=== PATIENT | male | born 1995 | race Caucasian/White ===

== ENCOUNTER 2017-07-20 17:42 | Emergency (ER) | payer SELFPAY ==
[2017-07-20 18:09] VITALS: TEMP 98.4; O2SAT 100
--- NOTE | 2017-07-20 18:47 | C.PDOC ---
History Of Present Illness 21 yo male come in for evaluation of itchy rash gradually developed for past few days " after slept at friends house". Pt sts, rash is extremely itchy, gradually spread over the body. Otherwise, pt denies fever, chills, recent illness or abx use, denies previous hx of allergy to food or medication, denies throat swelling or tightness, neck pain, dyspnea, cough, CP, SOB, wheezing, N/V , denies any other active complaints. Ambulate to Ed for evaluation, appears in pruritic discomfort. Time Seen by Provider: 07/20/17 18:39 Chief Complaint (Nursing): Abnormal Skin Integrity History Per: Patient Onset/Duration Of Symptoms: Gradual Past Medical History Reviewed: Historical Data, Nursing Documentation, Vital Signs Vital Signs: Last Vital Signs Temp 98.4 F 07/20/17 18:07 Pulse 96 H 07/20/17 18:07 Resp 16 07/20/17 18:07 BP 124/72 07/20/17 18:07 Pulse Ox 100 07/20/17 18:07 - Medical History PMH: No Chronic Diseases Surgical History: No Surg Hx Family History: States: No Known Family Hx - Social History Hx Alcohol Use: No Hx Substance Use: No - Immunization History Hx Tetanus Toxoid Vaccination: No Hx Influenza Vaccination: No Hx Pneumococcal Vaccination: No Review Of Systems Except As Marked, All Systems Reviewed And Found Negative. Constitutional: Negative for: Fever, Chills ENT: Negative for: Ear Discharge, Throat Pain, Throat Swelling Cardiovascular: Negative for: Edema Respiratory: Negative for: Cough, Shortness of Breath, Wheezing Gastrointestinal: Negative for: Vomiting, Abdominal Pain Skin: Positive for: Rash Neurological: Negative for: Weakness, Numbness, Altered Mental Status, Headache , Dizziness Physical Exam - Physical Exam Appears: Well, Non-toxic, No Acute Distress Skin: Normal Color, Warm, Dry, Rash (diffuse papular erythematous rash with cetral induration likely c/w insect bite, no cellulitis.) Eye(s): bilateral: PERRL Nose: No Flaring Oral Mucosa: Moist, No Drooling Tongue: Normal Appearing, No Swelling Lips: Normal Appearing, No Swelling Throat: No Erythema, No Drooling, Other (uvul amidline, no edema.) Neck: Supple Cardiovascular: Rhythm Regular Respiratory: No Decreased Breath Sounds, No Accessory Muscle Use, No Stridor, No Wheezing Back: No CVA Tenderness Extremity: Normal ROM, No Pedal Edema, No Deformity, No Swelling Neurological/Psych: Oriented x3, Normal Speech ED Course And Treatment O2 Sat by Pulse Oximetry: 100 Pulse Ox Interpretation: Normal Progress Note: On re-eval, pt is afebrile, hemodynamicaly stable. Non-toxic. PulsEOx 100% RA. ENT: no acute findings. uvula midline, no edema. Lungs: CTA B/L, BS equal B/L. Skin; examn c/w diffuse papular alexus likely c/w insect bite, no cellulitis, no flactulance. Pt advised on course of ds. ref. to f/u with PMD in 2-3 dyas for re-eval. return to ED if any worsening or new changes. Disposition Counseled Patient/Family Regarding: Diagnosis, Need For Followup, Rx Given - Disposition Referrals: Ace Nava MD [Staff Provider] - Disposition: HOME/ ROUTINE Disposition Time: 18:49 Condition: STABLE Additional Instructions: TAKE MEDICATION S PRESCRIBED AVOID EXPOSURE TO INSECT/ BED BUGS, ETC. CLEAN ALL CLOTHES/SHEETS FOLLOW UP WITH PMD IN 1-2 DAYS FOR RE-EVALUATION. RETURN TO ED IF ANY WORSENING OR NEW CHANGES. Prescriptions: DiphenhydrAMINE [Benadryl] 25 mg PO BID #10 cap Famotidine [Pepcid] 20 mg PO BID #10 tab Prednisone [Deltasone] 40 mg PO DAILY #6 tablet Instructions: Insect Bite or Sting (ED) - Clinical Impression Clinical Impression: Insect bite
[2017-07-20 19:11] VITALS: BP 121/69; PULSE 89; RESP 18
== END 2017-07-20 19:11 | disposition home or self-care (01) ==
LOC: C.ER 17:42
DX: T14.8 Other injury of unspecified body region (principal); W57.XXXA Bitten or stung by nonvenomous insect and other nonvenomous arthropods, initial encounter; Y92.009 Unspecified place in unspecified non-institutional (private) residence as the place of occurrence of the external cause

== ENCOUNTER 2017-07-26 02:07 | Emergency (ER) | payer SELFPAY ==
[2017-07-26 02:18] VITALS: BP 150/89; PULSE 100; RESP 18; TEMP 98
--- NOTE | 2017-07-26 02:28 | C.PDOC ---
History Of Present Illness 21 year old male presents to the ED with complaints of diffuse itchy rash for approximately 7 days. Patient states he was seen in ED 6 days ago for similar complaints after sleeping at a friend's house that he believes has bed bugs. He notes lesions have persisted despite medications. Patient denies lip swelling, throat swelling, cough, or shortness of breath. Chief Complaint (Nursing): Med Refill History Per: Patient History/Exam Limitations: no limitations Onset/Duration Of Symptoms: Days Current Symptoms Are (Timing): Still Present Reports Recently: Seen In ED (6 days ago ) Recent travel outside of the [place]: No Additional History Per: Prior Records Past Medical History Reviewed: Historical Data, Nursing Documentation, Vital Signs Vital Signs: Last Vital Signs Temp 98 F 07/26/17 02:16 Pulse 100 H 07/26/17 02:16 Resp 18 07/26/17 02:16 BP 150/89 07/26/17 02:16 Pulse Ox 99 07/26/17 02:45 Family History: States: Unknown Family Hx - Social History Hx Alcohol Use: No Hx Substance Use: No - Immunization History Hx Tetanus Toxoid Vaccination: No Hx Influenza Vaccination: No Hx Pneumococcal Vaccination: No Review Of Systems Constitutional: Negative for: Fever, Chills Respiratory: Negative for: Cough, Shortness of Breath Skin: Positive for: Rash Physical Exam - Physical Exam Appears: Non-toxic, No Acute Distress Skin: Warm, Dry, Rash (maculopapular rash to torso, lower, and upper extremtities. ) Head: Atraumatic, Normacephalic Eye(s): bilateral: Normal Inspection, PERRL, EOMI Ear(s): Bilateral: Normal Nose: Normal, No Discharge Oral Mucosa: Moist Tongue: Normal Appearing, No Swelling Lips: Normal Appearing, No Swelling Throat: Normal, No Erythema, No Exudate Neck: Supple Chest: Symmetrical, No Deformity Cardiovascular: Rhythm Regular, No Murmur Respiratory: Normal Breath Sounds, No Rales, No Rhonchi, No Wheezing Gastrointestinal/Abdominal: Soft, No Tenderness Neurological/Psych: Oriented x3 ED Course And Treatment O2 Sat by Pulse Oximetry: 98 (RA ) Disposition - Disposition Referrals: Non [facility] Provider, [Primary Care Provider] - Disposition: HOME/ ROUTINE Disposition Time: 02:27 Condition: STABLE Additional Instructions: Follow up with PMD /Clinic within 1-2 days. Return to ED if feel worse. Prescriptions: Permethrin 5% [Permethrin 5% Cream] 1 applic TOP ONCE #1 tube Instructions: Acute Rash (ED) Forms: [facility] (Kinyarwanda) - Clinical Impression Clinical Impression: Rash - PA / MANAGER [employer] DIRECT[employer] / Resident Statement MD/DO has reviewed & agrees with the documentation as recorded. - Scribe Statement The provider has reviewed the documentation as recorded by the Scribe Pam Castellon All medical record entries made by the [employer] were at my direction and personally dictated by me. I have reviewed the chart and agree that the record accurately reflects my personal performance of the history, physical exam, medical decision making, and the department course for this patient. I have also personally directed, reviewed, and agree with the discharge instructions and disposition.
[2017-07-26 05:05] VITALS: O2SAT 98
== END 2017-07-26 02:46 | disposition home or self-care (01) ==
LOC: SUPCPDRO 02:07 → C.ER 02:07
DX: R21 Rash and other nonspecific skin eruption (principal)